=== PATIENT | female | born 1945 | race Two or more races ===

== ENCOUNTER 2019-03-08 04:45 | Inpatient (IN) | payer OTHER, MEDICAID ==
[~2019-03-08] VITALS: Ht 152.4 cm; Wt 62.3 kg
[2019-03-08] MEDS ORDERED: normal saline 1000ml 1,000 ML IV ONE (05:20)
[2019-03-08] MEDS ORDERED: ondansetron/PF 4mg/2ml inj IV ONE (05:20)
[2019-03-08 05:44] LABS: BASOPHILS % (AUTO) 0.4 % (0-1); EOSINOPHILS # (AUTO) 0.2 X10'3 (0-0.9); EOSINOPHILS % (AUTO) 3.7 % (0-6); HEMATOCRIT 34.7 % (35.0-45.0); HEMOGLOBIN 11.6 g/dl (12.0-16.0); LYMPHOCYTES # (AUTO) 1.5 X10'3 (1.1-4.8); LYMPHOCYTES % (AUTO) 24.3 % (21-51); MEAN CORPUSCULAR HEMOGLOBIN 30.7 PG (27.0-31.0); MEAN CORPUSCULAR HGB CONC 33.5 g/dL (33.0-36.5); MEAN CORPUSCULAR VOLUME 91.6 FL (78-98); MONOCYTES # (AUTO) 0.6 X10'3 (0-0.9); MONOCYTES % (AUTO) 8.8 % (2-12); NEUTROPHILS % (AUTO) 62.8 % (42-75); PLATELET COUNT 132 X10'3 (140-440); RED BLOOD COUNT 3.79 X10'6 (4.20-5.60); RED CELL DISTRIBUTION WIDTH 14.1 % (11.5-14.5); WHITE BLOOD COUNT 6.4 X10'3 (4.5-11.0)
[2019-03-08 05:54] LABS: ALANINE AMINOTRANSFERASE 14 U/L (12-78); ALKALINE PHOSPHATASE 55 IU/L (46-116); ANION GAP 9 (8-16); ASPARTATE AMINO TRANSFERASE 15 U/L (10-37); BILIRUBIN,TOTAL 0.6 MG/DL (0.1-1.0); BLOOD UREA NITROGEN 18 MG/DL (7-18); BUN/CREATININE RATIO 13.8 (6.6-38.0); CALCIUM 8.1 MG/DL (8.5-10.1); CHLORIDE 110 MMOL/L (99-107); GLUCOSE 128 MG/DL (70-104); POTASSIUM 3.7 MMOL/L (3.5-5.1); SODIUM 144 MMOL/L (135-145); TOTAL CARBON DIOXIDE 25.1 MMOL/L (24-32); TOTAL PROTEIN 6.1 G/DL (6.4-8.2); eGFR 40 ML/MIN
[2019-03-08] MEDS ORDERED: normal saline 1000ML IV soln IVB ONE (07:15)
--- NOTE | 2019-03-08 07:16 | NUR ---
Notified Dr. Lopez regarding decreased blood pressure in bilateral arms.
[2019-03-08] MEDS ORDERED: mag hydrox/Alum hydrox/simeth 30ml oral suspension PO PRN (08:20)
[2019-03-08] MEDS ORDERED: acetaminophen 325mg tablet PO PRN (08:20)
[2019-03-08] MEDS ORDERED: magnesium hydroxide 30ml (MOM) UD suspension PO PRN (08:20)
[2019-03-08] MEDS ORDERED: ondansetron/PF 4mg/2ml inj IV PRN (08:20)
[2019-03-08] MEDS ORDERED: LOSA100T57 PO (08:54)
[2019-03-08] MEDS ORDERED: RIVA20TA PO (08:54)
[2019-03-08] MEDS ORDERED: SPIR25TA5 PO (08:54)
[2019-03-08] MEDS ORDERED: LEVE500T PO (08:54)
[2019-03-08] MEDS ORDERED: CARV25TA2 PO (08:54)
[2019-03-08] MEDS ORDERED: BENZ-49 PO (08:54)
[2019-03-08] MEDS ORDERED: ATOR-2 PO (08:54)
[2019-03-08] MEDS ORDERED: AMLO10TA13 PO (08:54)
[2019-03-08] MEDS ORDERED: NITR0.4T48 SL (08:54)
[2019-03-08] MEDS: normal saline 1000ml 1,000 ML IV SCH ×2 (08:58→16:39)
[2019-03-08 09:55] VITALS: BP 100/49
[2019-03-08] MEDS ORDERED: benzonatate 100mg capsule PO PRN (12:30)
[2019-03-08] MEDS ORDERED: nitroGLYCERIN 0.4mg SUBLingual tab SL PRN (12:30)
[2019-03-08 15:32] VITALS: BP 103/58
[2019-03-08 18:00] VITALS: BP 111/62
[2019-03-08] MEDS: levetiracetam 250mg tablet PO SCH (20:19)
[2019-03-08] MEDS: carvedilol 6.25mg tablet PO SCH (20:20)
[2019-03-08] MEDS: rivaroxaban 20mg tablet PO SCH (20:28)
[2019-03-08 22:00] VITALS: BP 131/39
[2019-03-09] MEDS: normal saline 1000ml 1,000 ML IV SCH ×2 (04:20→14:20)
[2019-03-09 06:00] VITALS: BP 144/47
--- NOTE | 2019-03-09 06:48 | NUR ---
Patient in room [facility]TH[facility] 4021. I have received report from Doc BAILEY and had the opportunity to ask questions and assume patient care.
[2019-03-09 07:38] LABS: BASOPHILS % (AUTO) 0.5 % (0-1); EOSINOPHILS # (AUTO) 0.2 X10'3 (0-0.9); HEMATOCRIT 33.1 % (35.0-45.0); HEMOGLOBIN 11.1 g/dl (12.0-16.0); LYMPHOCYTES # (AUTO) 1.5 X10'3 (1.1-4.8); MEAN CORPUSCULAR HEMOGLOBIN 30.8 PG (27.0-31.0); MEAN CORPUSCULAR HGB CONC 33.7 g/dL (33.0-36.5); MEAN CORPUSCULAR VOLUME 91.4 FL (78-98); MONOCYTES # (AUTO) 0.5 X10'3 (0-0.9); MONOCYTES % (AUTO) 9.2 % (2-12); NEUTROPHILS # (AUTO) 3.4 X10'3 (1.8-7.7); NEUTROPHILS % (AUTO) 59.3 % (42-75); PLATELET COUNT 120 X10'3 (140-440); RED BLOOD COUNT 3.62 X10'6 (4.20-5.60); RED CELL DISTRIBUTION WIDTH 14.4 % (11.5-14.5); WHITE BLOOD COUNT 5.7 X10'3 (4.5-11.0)
[2019-03-09 07:46] LABS: ALBUMIN 2.9 G/DL (3.4-5.0); ANION GAP 10 (8-16); BLOOD UREA NITROGEN 19 MG/DL (7-18); BUN/CREATININE RATIO 15.8 (6.6-38.0); CALCIUM 7.7 MG/DL (8.5-10.1); CHLORIDE 114 MMOL/L (99-107); GLUCOSE 104 MG/DL (70-104); POTASSIUM 3.7 MMOL/L (3.5-5.1); SODIUM 146 MMOL/L (135-145); TOTAL CARBON DIOXIDE 22.3 MMOL/L (24-32); eGFR 44 ML/MIN
[2019-03-09] MEDS: levetiracetam 250mg tablet PO SCH ×2 (08:00→20:33)
[2019-03-09] MEDS: carvedilol 6.25mg tablet PO SCH ×2 (08:11→20:33)
[2019-03-09] MEDS: atorvastatin 20mg tablet PO SCH (08:11)
[2019-03-09 09:43] VITALS: BP 119/47
[2019-03-09 16:00] VITALS: BP_SYST 149; BP_SYST 150; BP_SYST 163; BP_DIAS 49; BP_DIAS 58; BP_DIAS 64
[2019-03-09 18:00] VITALS: BP 145/62
--- NOTE | 2019-03-09 18:36 | NUR ---
Problems reprioritized. Patient report given, questions answered & plan of care reviewed with Dainta BAILEY.
[2019-03-09] MEDS ORDERED: non-formulary drug (Carvedilol 1 TAB) PO SCH (20:00)
[2019-03-09] MEDS: rivaroxaban 20mg tablet PO SCH (20:33)
[2019-03-09 22:00] VITALS: BP 155/58
[2019-03-09] MEDS: dextrose 5%-water 1,000 ML IV SCH (22:40)
[2019-03-10] VITALS (8 sets, daily range): BP systolic 124–166; BP diastolic 48–84
[2019-03-10 06:17] LABS: BASOPHILS % (AUTO) 0.5 % (0-1); EOSINOPHILS # (AUTO) 0.2 X10'3 (0-0.9); EOSINOPHILS % (AUTO) 3.1 % (0-6); HEMATOCRIT 35.7 % (35.0-45.0); HEMOGLOBIN 11.9 g/dl (12.0-16.0); LYMPHOCYTES # (AUTO) 1.5 X10'3 (1.1-4.8); LYMPHOCYTES % (AUTO) 28.3 % (21-51); MEAN CORPUSCULAR HEMOGLOBIN 30.8 PG (27.0-31.0); MEAN CORPUSCULAR HGB CONC 33.4 g/dL (33.0-36.5); MEAN CORPUSCULAR VOLUME 92.2 FL (78-98); MEAN PLATELET VOLUME 9.3 FL (7.4-10.4); MONOCYTES # (AUTO) 0.5 X10'3 (0-0.9); MONOCYTES % (AUTO) 9.3 % (2-12); NEUTROPHILS # (AUTO) 3.2 X10'3 (1.8-7.7); NEUTROPHILS % (AUTO) 58.8 % (42-75); PLATELET COUNT 121 X10'3 (140-440); RED BLOOD COUNT 3.87 X10'6 (4.20-5.60); RED CELL DISTRIBUTION WIDTH 14.3 % (11.5-14.5); WHITE BLOOD COUNT 5.5 X10'3 (4.5-11.0)
[2019-03-10 06:25] LABS: ALBUMIN 3.2 G/DL (3.4-5.0); ANION GAP 8 (8-16); BLOOD UREA NITROGEN 17 MG/DL (7-18); BUN/CREATININE RATIO 17.2 (6.6-38.0); CALCIUM 8.1 MG/DL (8.5-10.1); CHLORIDE 110 MMOL/L (99-107); CREATININE 0.99 MG/DL (0.40-0.90); GLUCOSE 103 MG/DL (70-104); POTASSIUM 3.5 MMOL/L (3.5-5.1); SODIUM 143 MMOL/L (135-145); TOTAL CARBON DIOXIDE 24.7 MMOL/L (24-32); eGFR 55 ML/MIN
--- NOTE | 2019-03-10 06:32 | NUR ---
Patient in room [facility]TH[facility] 4021. I have received report from LYNN Samayoa and had the opportunity to ask questions and assume patient care.
[2019-03-10] MEDS ORDERED: losartan 50mg tablet PO SCH (08:00)
[2019-03-10] MEDS ORDERED: amLODIPine 5mg tablet PO SCH (08:00)
[2019-03-10] MEDS: carvedilol 6.25mg tablet PO SCH ×2 (08:07→19:26)
[2019-03-10] MEDS: levetiracetam 250mg tablet PO SCH ×2 (08:09→19:24)
[2019-03-10] MEDS: atorvastatin 20mg tablet PO SCH (08:13)
[2019-03-10] MEDS: dextrose 5%-water 1,000 ML IV SCH ×3 (08:29→22:04)
--- NOTE | 2019-03-10 11:11 | NUR ---
Student Medication Administration:For this medication-pass time frame [id number], all medications were reviewed, administered and documented per hospital policy by Romelia Persaud. Student documentation:I have reviewed and agree with all interventions, assessments performed and documented by Romelia Persaud.
--- NOTE | 2019-03-10 18:10 | NUR ---
Patient in room [facility]TH[facility] 4021. I have received report from Elsa BAILEY and had the opportunity to ask questions and assume patient care.
[2019-03-10] MEDS: rivaroxaban 20mg tablet PO SCH (21:46)
== END 2019-03-11 05:10 | disposition home or self-care (01) | DRG 391 ==
LOC: ER 04:46 → ED HOLD 08:34 → ORTHO 4S 09:35 → OBSVTOIN 03-10 09:30
PROVIDERS: ADMIT Family Medicine; ATTEND Family Medicine
DX: A08.4 Viral intestinal infection, unspecified (principal); G93.41 Metabolic encephalopathy; E87.0 Hyperosmolality and hypernatremia; N17.9 Acute kidney failure, unspecified; D64.9 Anemia, unspecified; E78.5 Hyperlipidemia, unspecified; E83.51 Hypocalcemia; E86.0 Dehydration; G31.84 Mild cognitive impairment of uncertain or unknown etiology; I12.9 Hypertensive chronic kidney disease with stage 1 through stage 4 chronic kidney disease, or unspecified chronic kidney disease; I25.10 Atherosclerotic heart disease of native coronary artery without angina pectoris; I48.91 Unspecified atrial fibrillation; R55 Syncope and collapse; N18.9 Chronic kidney disease, unspecified; Z95.0 Presence of cardiac pacemaker; Z95.5 Presence of coronary angioplasty implant and graft; Z88.5 Allergy status to narcotic agent
CPT/HCPCS: 36415; 71045; 74176; 80048; 80053; 83605; 84484; 85025; 87040; 87081; 93005; 93306; 96361; 96374; 97116; 97161; 97530; 99285; G0378; J2405; J7030; J7070